=== PATIENT | male | born 1940 | race Caucasian/White ===

== ENCOUNTER 2023-11-29 08:42 | Inpatient (IN) | payer MEDICARE, MEDICAID ==
[~2023-11-29] VITALS: Ht 167.6 cm; Wt 76.7 kg
[~2023-11-29 08:42] MED LIST: ASPI-1749 PO; CEPH-588 PO; LIP80 PO; METO25TA PO; NIFE-184 PO
[2023-11-29 09:04] VITALS: BP 130/79; PULSE 81; RESP 18; TEMP 98; O2SAT 96
[2023-11-29 09:34] LABS: BASOPHILS % (AUTO) 0.4 % (0.0-2.0); EOSINOPHILS # (AUTO) 0.1 K/uL (0-0.4); EOSINOPHILS % (AUTO) 0.9 % (0.0-4.0); HEMATOCRIT 33.5 % (36-52); HEMOGLOBIN 10.8 g/dL (12.0-18.0); LYMPHOCYTES # (AUTO) 0.7 K/uL (2.0-11.5); LYMPHOCYTES % (AUTO) 6.5 % (20.5-51.1); MEAN CORPUSCULAR HEMOGLOBIN 28 pg (27-31); MEAN CORPUSCULAR HGB CONC 32 g/dL (33-37); MEAN CORPUSCULAR VOLUME 86.5 fL (80-94); MONOCYTES % (AUTO) 9.4 % (1.7-9.3); NEUTROPHILS # (AUTO) 8.8 K/uL (1.8-7.7); NEUTROPHILS % (AUTO) 82.8 % (42.2-75.2); PLATELET COUNT (AUTO) 631 K/uL (140-450); RED BLOOD CELL COUNT(AUTO) 3.87 MIL/uL (4.20-6.10); RED CELL DISTRIBUTION WIDTH 16.4 % (11.6-13.7)
[2023-11-29 09:41] LABS: WHITE BLOOD COUNT (AUTO) 10.6 K/uL (4.8-10.8)
[2023-11-29 10:05] LABS: ALANINE AMINOTRANSFERASE 13 U/L (12-78); ALBUMIN 2.2 g/dL (3.4-5.0); ALKALINE PHOSPHATASE 154 U/L (50-136); ANION GAP 18.9 (8-16); ASPARTATE AMINOTRANSFERASE 20 U/L (15-37); CALCIUM 6.5 mg/dL (8.5-10.1); CARBON DIOXIDE 18.1 mmol/L (21-32); CHLORIDE 107 mmol/L (98-107); CREATININE 3.8 mg/dL (0.6-1.3); GLUCOSE 138 mg/dL (74-106); SODIUM SERUM 140 mmol/L (136-145); TOTAL BILIRUBIN 0.8 mg/dL (0.0-1.0); TOTAL PROTEIN, SERUM 8.2 g/dL (6.4-8.2); UREA NITROGEN, BLOOD 57 mg/dL (7-18)
[2023-11-29] MEDS: NACL 0.9% 2,000 ML IV ONE (10:56)
[2023-11-29] MEDS: CALCIUM CHLORIDE 10% 100 MG/ML SYR IVP ONE (10:57)
[2023-11-29] MEDS: ONDANSETRON 4 MG/2 ML VIAL IVP ONE (11:01)
[2023-11-29] MEDS: ASPIRIN 325 MG TAB PO ONE (11:06)
[2023-11-29] MEDS ORDERED: ENZA80TA PO (11:06)
[2023-11-29] MEDS ORDERED: ACETAMINOPHEN 325 MG TAB PO PRN (11:45)
[2023-11-29] MEDS ORDERED: MORPHINE SULFATE 4 MG/ML SYR IVP PRN (11:45)
[2023-11-29] MEDS ORDERED: HYDROcodone/APAP 5/325 MG 1 TAB TAB PO PRN (11:45)
[2023-11-29] MEDS ORDERED: LORazepam 1 MG TAB PO PRN (11:45)
[2023-11-29] MEDS ORDERED: PROCHLORPERAZINE 5 MG TAB PO PRN (11:50)
[2023-11-29 11:51] LABS: APPEARANCE,URINE TURBID (CLEAR); BILIRUBIN,URINE NEGATIVE (NEGATIVE); BLOOD, URINE 3+ (NEGATIVE); COLOR,URINE YELLOW (YELLOW); LEUKOCYTE ESTERASE ,URINE 3+ (NEGATIVE); NITRITE, URINE NEGATIVE (NEGATIVE); PROTEIN,URINE 2+ (NEGATIVE); UGLUCOSE NEGATIVE (NEGATIVE)
[2023-11-29 12:10] LABS: BACTERIA,URINE >30 (MANY) /HPF (None Seen); RBC,URINE >20 (MANY) /HPF (0-5); SQUAMOUS EPITHELIAL CELL,UR 0-3 (FEW) /LPF (0-3 (FEW)); WBC,URINE >25 (MANY) /HPF (0-5)
[2023-11-29] MEDS: NACL 0.9% 1,000 ML IV SCH (12:45)
[2023-11-29 12:52] VITALS: PULSE 68; RESP 12; O2SAT 96
[2023-11-29 13:13] VITALS: BP 142/73; PULSE 68; RESP 18; TEMP 97.4; O2SAT 96
[2023-11-29 16:00] VITALS: BP 107/71; PULSE 71; PULSE 72; RESP 18; TEMP 97.4; O2SAT 98
[2023-11-29 20:00] VITALS: BP 123/66; PULSE 72; PULSE 73; RESP 18; TEMP 96.8; O2SAT 97
[2023-11-29] MEDS: ZOLPIDEM 5 MG TAB PO PRN (21:16)
[2023-11-29 21:21] LABS: APPEARANCE,URINE CLEAR (CLEAR); BILIRUBIN,URINE NEGATIVE (NEGATIVE); BLOOD, URINE 3+ (NEGATIVE); COLOR,URINE YELLOW (YELLOW); LEUKOCYTE ESTERASE ,URINE 2+ (NEGATIVE); NITRITE, URINE NEGATIVE (NEGATIVE); PROTEIN,URINE 2+ (NEGATIVE); UGLUCOSE NEGATIVE (NEGATIVE)
[2023-11-29 21:36] LABS: BACTERIA,URINE >30 (MANY) /HPF (None Seen); RBC,URINE TOO NUMEROUS TO COUN /HPF (0-5); WBC,URINE TOO MANY TO COUNT /HPF (0-5)
[2023-11-29 21:37] LABS: MUCUS,URINE None Seen /LPF (None Seen); SQUAMOUS EPITHELIAL CELL,UR 0-3 (FEW) /LPF (0-3 (FEW)); TRICHOMONAS,URINE None Seen /HPF (None Seen); WHITE BLOOD CELL CASTS,URINE None Seen /LPF (None Seen); YEAST,URINE None Seen /HPF (None Seen)
[2023-11-30] VITALS (8 sets, daily range): BP systolic 92–137; BP diastolic 56–71; PULSE 65–85; RESP 17–20; TEMP 96.5–97.6; O2SAT 95–100
[2023-11-30 05:06] LABS: BASOPHILS % (AUTO) 0.4 % (0.0-2.0); EOSINOPHILS # (AUTO) 0.1 K/uL (0-0.4); HEMATOCRIT 30.9 % (36-52); HEMOGLOBIN 9.9 g/dL (12.0-18.0); LYMPHOCYTES # (AUTO) 0.8 K/uL (2.0-11.5); LYMPHOCYTES % (AUTO) 7.9 % (20.5-51.1); MEAN CORPUSCULAR HEMOGLOBIN 28 pg (27-31); MEAN CORPUSCULAR HGB CONC 32 g/dL (33-37); MEAN CORPUSCULAR VOLUME 88.5 fL (80-94); MONOCYTES # (AUTO) 1.2 K/uL (0.8-1.0); MONOCYTES % (AUTO) 11.6 % (1.7-9.3); NEUTROPHILS # (AUTO) 8.4 K/uL (1.8-7.7); NEUTROPHILS % (AUTO) 79.1 % (42.2-75.2); PLATELET COUNT (AUTO) 533 K/uL (140-450); RED BLOOD CELL COUNT(AUTO) 3.49 MIL/uL (4.20-6.10); RED CELL DISTRIBUTION WIDTH 15.9 % (11.6-13.7); WHITE BLOOD COUNT (AUTO) 10.7 K/uL (4.8-10.8)
[2023-11-30 06:04] LABS: ANION GAP 16.8 (8-16); CALCIUM 6.6 mg/dL (8.5-10.1); CARBON DIOXIDE 17.3 mmol/L (21-32); CHLORIDE 112 mmol/L (98-107); CREATININE 3.4 mg/dL (0.6-1.3); GLUCOSE 81 mg/dL (74-106); POTASSIUM 4.1 mmol/L (3.5-5.1); SODIUM SERUM 142 mmol/L (136-145); UREA NITROGEN, BLOOD 51 mg/dL (7-18)
[2023-11-30] MEDS: ONDANSETRON 4 MG/2 ML VIAL IVP PRN (18:34)
[2023-12-01] VITALS: BP 116/66; PULSE 66; PULSE 88; RESP 18; TEMP 96.6; O2SAT 97
[2023-12-01 04:00] VITALS: BP 120/63; PULSE 67; PULSE 81; RESP 18; TEMP 97.3; O2SAT 98
[2023-12-01 08:00] VITALS: BP 108/62; PULSE 70; PULSE 71; PULSE 85; RESP 18; RESP 19; TEMP 96.9; O2SAT 71; O2SAT 96
[2023-12-01 08:25] LABS: BASOPHILS % (AUTO) 0.5 % (0.0-2.0); EOSINOPHILS # (AUTO) 0.1 K/uL (0-0.4); EOSINOPHILS % (AUTO) 1.6 % (0.0-4.0); HEMATOCRIT 30.1 % (36-52); HEMOGLOBIN 9.7 g/dL (12.0-18.0); LYMPHOCYTES # (AUTO) 0.7 K/uL (2.0-11.5); LYMPHOCYTES % (AUTO) 11.2 % (20.5-51.1); MEAN CORPUSCULAR HEMOGLOBIN 28 pg (27-31); MEAN CORPUSCULAR HGB CONC 32 g/dL (33-37); MEAN CORPUSCULAR VOLUME 87.9 fL (80-94); MONOCYTES # (AUTO) 0.6 K/uL (0.8-1.0); MONOCYTES % (AUTO) 9.8 % (1.7-9.3); NEUTROPHILS # (AUTO) 4.8 K/uL (1.8-7.7); NEUTROPHILS % (AUTO) 76.9 % (42.2-75.2); PLATELET COUNT (AUTO) 546 K/uL (140-450); RED BLOOD CELL COUNT(AUTO) 3.42 MIL/uL (4.20-6.10); RED CELL DISTRIBUTION WIDTH 16.5 % (11.6-13.7); WHITE BLOOD COUNT (AUTO) 6.2 K/uL (4.8-10.8)
[2023-12-01 09:26] LABS: ANION GAP 18.1 (8-16); CALCIUM 6.2 mg/dL (8.5-10.1); CARBON DIOXIDE 16.1 mmol/L (21-32); CHLORIDE 117 mmol/L (98-107); GLUCOSE 88 mg/dL (74-106); POTASSIUM 4.2 mmol/L (3.5-5.1); SODIUM SERUM 147 mmol/L (136-145); UREA NITROGEN, BLOOD 43 mg/dL (7-18)
[2023-12-01 12:00] VITALS: BP 133/71; PULSE 67; PULSE 72; RESP 18; TEMP 97.1; O2SAT 99
[2023-12-01] MEDS: CALCIUM GLUC 1 GM/50 mL NS BAG 50 ML IV SCH (12:02)
[2023-12-01] MEDS: NACL 0.45% 1,000 ML IV SCH (12:14)
[2023-12-01 16:00] VITALS: BP 131/66; PULSE 68; PULSE 72; RESP 18; TEMP 97.7; O2SAT 99
[2023-12-01 20:00] VITALS: BP 122/72; PULSE 66; PULSE 68; PULSE 70; RESP 18; TEMP 97.1; O2SAT 99
[2023-12-02] VITALS: BP 144/72; PULSE 68; PULSE 83; RESP 18; TEMP 97.1; O2SAT 99
[2023-12-02 04:00] VITALS: BP 122/70; PULSE 60; PULSE 66; RESP 18; TEMP 96.7; O2SAT 97
[2023-12-02 05:26] LABS: ANION GAP 15.5 (8-16); CALCIUM 6.5 mg/dL (8.5-10.1); CARBON DIOXIDE 17.8 mmol/L (21-32); CHLORIDE 117 mmol/L (98-107); CREATININE 2.8 mg/dL (0.6-1.3); GLUCOSE 105 mg/dL (74-106); POTASSIUM 4.3 mmol/L (3.5-5.1); SODIUM SERUM 146 mmol/L (136-145); UREA NITROGEN, BLOOD 36 mg/dL (7-18)
[2023-12-02 05:39] LABS: BASOPHILS # (AUTO) 0.1 K/uL (0.00-0.22); EOSINOPHILS # (AUTO) 0.2 K/uL (0-0.4); EOSINOPHILS % (AUTO) 2.8 % (0.0-4.0); HEMATOCRIT 28.5 % (36-52); HEMOGLOBIN 9.4 g/dL (12.0-18.0); LYMPHOCYTES # (AUTO) 0.8 K/uL (2.0-11.5); LYMPHOCYTES % (AUTO) 12.7 % (20.5-51.1); MEAN CORPUSCULAR HEMOGLOBIN 29 pg (27-31); MEAN CORPUSCULAR HGB CONC 33 g/dL (33-37); MONOCYTES # (AUTO) 0.6 K/uL (0.8-1.0); MONOCYTES % (AUTO) 9.9 % (1.7-9.3); NEUTROPHILS # (AUTO) 4.4 K/uL (1.8-7.7); NEUTROPHILS % (AUTO) 73.6 % (42.2-75.2); PLATELET COUNT (AUTO) 511 K/uL (140-450); RED BLOOD CELL COUNT(AUTO) 3.28 MIL/uL (4.20-6.10); RED CELL DISTRIBUTION WIDTH 16.3 % (11.6-13.7); WHITE BLOOD COUNT (AUTO) 5.9 K/uL (4.8-10.8)
[2023-12-02 08:00] VITALS: BP 126/74; PULSE 60; PULSE 65; RESP 18; TEMP 96.8; O2SAT 98
[2023-12-02] MEDS ORDERED: CIPR500T4 PO (08:25)
[2023-12-02] MEDS ORDERED: ONDA-188 PO (09:18)
[2023-12-02] MEDS: MAG SULF 2000 MG/WATER PREMIX 100 ML IV SCH (09:30)
[2023-12-02 12:00] VITALS: BP 117/70; PULSE 64; PULSE 65; RESP 18; TEMP 97; O2SAT 100
[2023-12-02 12:44] VITALS: BP 117/70; PULSE 64; RESP 18; TEMP 97
== END 2023-12-02 14:25 | disposition home or self-care (01) | DRG 682 ==
LOC: MED 08:42 → MTU 11:44 → MMU 12:17
PROVIDERS: ADMIT Internal Medicine; ATTEND Internal Medicine
DX: N17.9 Acute kidney failure, unspecified (principal); E43 Unspecified severe protein-calorie malnutrition; N39.0 Urinary tract infection, site not specified; C61 Malignant neoplasm of prostate; E86.0 Dehydration; D53.9 Nutritional anemia, unspecified; E11.22 Type 2 diabetes mellitus with diabetic chronic kidney disease; R11.2 Nausea with vomiting, unspecified; I12.9 Hypertensive chronic kidney disease with stage 1 through stage 4 chronic kidney disease, or unspecified chronic kidney disease; N18.9 Chronic kidney disease, unspecified; Z79.899 Other long term (current) drug therapy; Z68.27 Body mass index [BMI] 27.0-27.9, adult
CPT/HCPCS: 36415; 71045; 74150; 76770; 80048; 80053; 81001; 82330; 83735; 83880; 84300; 84484; 85025; 87081; 87086; 87186; 93005; 96361; 96374; 96375; 99285; J0610; J0696; J1644; J2405; J3475; J7060; Q0092